=== PATIENT | female | born 1990 | race African-American/Black ===

== ENCOUNTER 2018-08-17 09:59 | Emergency (ER) | payer SELFPAY ==
[~2018-08-17] VITALS: Ht 167.6 cm; Wt 79.4 kg
[2018-08-17 10:08] VITALS: BP 136/90
--- NOTE | 2018-08-17 10:23 | PHYS DOC ---
Past History Past Medical History: Bronchitis, Ectopic Additional Past Surgical Histo: fallopian tube removal bilaterally due to ectopic pregnancies Smoking: Cigarettes, Less than 1pk/day Alcohol Use: Occasionally Drug Use: None Adult General Chief Complaint Chief Complaint: COUGH HPI HPI Patient is a 28-year-old female with chest discomfort when coughing. This started 4 days ago. Nonproductive cough. Similar to previous episodes of bronchitis. Denies any fever. Chest discomfort is only one coughing, no respirophasic chest discomfort. No exertional chest discomfort. No PE risk factors. She is also complaining of right wisdom tooth pain on the bottom. This is also been present for the past 4 days. With acetaminophen. She has also had nasal congestion and sneezing for the past 4 days. She is tried Benadryl without relief for this. She is also tried NyQuil without relief for both the cough and this nasal congestion. Symptoms seemed to get a little bit worse at nighttime when she is laying down. She has not sought any other medical care.[] Review of Systems Review of Systems Constitutional: Denies fever or chills [] Eyes: Denies change in visual acuity, redness, or eye pain [] HENT: Denies sore throat or sinus pressure[] Respiratory: Denies shortness of breath, see history of present illness [] Cardiovascular: No additional information not addressed in HPI [] GI: Denies abdominal pain, nausea, vomiting, bloody stools, reports diarrhea and decreased appetite [] : Denies dysuria or hematuria [] Musculoskeletal: Denies back pain or joint pain [] Integument: Denies rash or skin lesions [] Neurologic: Denies headache, focal weakness or sensory changes [] Endocrine: Denies polyuria or polydipsia [] All other systems were reviewed and found to be within normal limits, except as documented in this note. Physical Exam Physical Exam Constitutional: Well developed, well nourished, no acute distress, non-toxic appearance. [] HENT: Normocephalic, atraumatic, bilateral external ears normal, oropharynx moist, no oral exudates, nose normal. Tenderness to percussion of the tooth #32, no drainable abscess appreciated[] Eyes: PERRLA, EOMI, conjunctiva normal, no discharge. [] Neck: Normal range of motion, no tenderness, supple, no stridor. [] Cardiovascular:Heart rate regular rhythm, no murmur [] Lungs & Thorax: Bilateral breath sounds clear to auscultation, no increased work of breathing, no tenderness to palpation [] Abdomen: Bowel sounds normal, soft, no tenderness, no masses, no pulsatile masses. [] Skin: Warm, dry, no erythema, no rash. [] Back: No tenderness, no CVA tenderness. [] Extremities: No tenderness, no cyanosis, no clubbing, ROM intact, no edema. [] Neurologic: Alert and oriented X 3, normal motor function, normal sensory function, no focal deficits noted. [] Psychologic: Affect normal, judgement normal, mood normal. [] EKG EKG [] Radiology/Procedures Radiology/Procedures PROCEDURE: CHEST PA & LATERAL CHEST PA LATERAL Clinical indications: CHEST PAIN AND COUGH FOR A FEW DAYS COMPARISON: None available. Findings: No acute lung infiltrate or pleural effusion or pulmonary edema or lung mass or pneumothorax is seen. The heart size, pulmonary vasculature, mediastinum and both deshawn are unremarkable. The osseous structures appear intact. Impression: No acute radiographic abnormality is seen. [] Course & Med Decision Making Course & Med Decision Making Pertinent Labs and Imaging studies reviewed. (See chart for details) Medical decision making: Patient with multiple complaints, most likely due to a viral syndrome however possible periapical abscess. We'll cover with antibiotics for that. There is no evidence of meningitis, encephalitis, pneumonia, nor acute coronary syndrome. No evidence of pulmonary embolism.[] Dragon Disclaimer Dragon Disclaimer This electronic medical record was generated, in whole or in part, using a voice recognition dictation system. Departure Departure: Impression: Primary Impression: Dental abscess Additional Impressions: Upper respiratory infection Cough Disposition: HOME, SELF-CARE Condition: IMPROVED Referrals: PCP,NO (PCP) Patient Instructions: Cough, Adult, Dental Abscess, Upper Respiratory Infection, Adult Additional Instructions: Drink plenty fluids. Follow-up with your regular doctor in 2 days. If you do not have regular doctor list of local clinics will be provided for you. Return to the ER if worsening discomfort, difficulty breathing, or any other concerns. Scripts D-Methorphan Hb/Prometh Hcl (PROMETHAZINE-DM SYRUP) 118 Ml Syrup 5 ML PO PRN Q4HRS for CONGESTION, #120 ML Prov: RAMIRO WRIGHT DO 08/17/18 Meloxicam (MELOXICAM) 7.5 Mg Tablet 7.5 MG PO DAILY for PAIN, #20 TAB Prov: RAMIRO WRIGHT DO 08/17/18 Amoxicillin (AMOXICILLIN) 500 Mg Tablet 1 TAB PO TID for dental infection, #30 TAB Prov: RAMIRO WRIGHT DO 08/17/18 Problem Qualifiers Additional Impressions: Upper respiratory infection URI type: unspecified URI Qualified Codes: J06.9 - Acute upper respiratory infection, unspecified RAMIRO WRIGHT DO Aug 17, 2018 10:23
--- NOTE | 2018-08-17 10:28 | RAD ---
CHEST PA LATERAL Clinical indications: CHEST PAIN AND COUGH FOR A FEW DAYS COMPARISON: None available. Findings: No acute lung infiltrate or pleural effusion or pulmonary edema or lung mass or pneumothorax is seen. The heart size, pulmonary vasculature, mediastinum and both deshawn are unremarkable. The osseous structures appear intact. Impression: No acute radiographic abnormality is seen. Electronically signed by: Diego Magaña MD (08/17/2018 10:24 AM) [facility]
[2018-08-17] MEDS ORDERED: AMOX500T PO (10:38)
[2018-08-17] MEDS ORDERED: D-ME118S2 PO (10:38)
[2018-08-17] MEDS ORDERED: MELO7.5T29 PO (10:38)
== END 2018-08-17 10:42 | disposition home or self-care (01) ==
LOC: ER 09:59
DX: J06.9 Acute upper respiratory infection, unspecified (principal); K04.7 Periapical abscess without sinus; F17.210 Nicotine dependence, cigarettes, uncomplicated
CPT/HCPCS: 71046; 99284